=== PATIENT | female | born 1980 | race African-American/Black ===

== ENCOUNTER 2024-04-10 12:22 | Emergency (ER) | payer OTHER ==
[~2024-04-10] VITALS: Ht 170.2 cm; Wt 105.0 kg
[2024-04-10 12:24] VITALS: TEMP 99.2
[2024-04-10] MEDS: MAGNESIUM SULFATE 2 GM in DEXTROSE 5%-WATER 100 ML IV ONE (12:48)
[2024-04-10] MEDS: MethylPREDNISolone SOD SUCC 125 MG/2 ML VIAL IVP ONE (12:48)
[2024-04-10 12:53] LABS: BASOPHILS % (AUTO) 0.4 % (0.0-2.0); EOSINOPHILS % (AUTO) 0.6 % (1.0-6.0); HEMATOCRIT 41.6 % (36-46); HEMOGLOBIN 13.4 g/dL (12.0-16.0); LYMPHOCYTES # (AUTO) 0.9 K/uL (1.0-4.8); LYMPHOCYTES % (AUTO) 6.9 % (22.0-44.0); MEAN CORPUSCULAR HEMOGLOBIN 29.8 pg (26.0-34.0); MEAN CORPUSCULAR HGB CONC 32.1 G/dL (31.0-37.0); MEAN CORPUSCULAR VOLUME 93 fL (80-100); MONOCYTES # (AUTO) 0.7 K/uL (0.1-1.0); MONOCYTES % (AUTO) 5.6 % (2.0-9.0); NEUTROPHILS # (AUTO) 11.4 K/uL (1.8-7.7); PLATELET COUNT (AUTO) 282 K/uL (150-450); RED BLOOD CELL COUNT(AUTO) 4.48 MIL/uL (4.00-5.20); RED CELL DISTRIBUTION WIDTH 13.7 % (11.5-14.5); WHITE BLOOD COUNT (AUTO) 13.2 K/uL (4.5-11.0)
[2024-04-10 12:57] LABS: NEUTROPHILS % (AUTO) 86.5 % (40.0-70.0)
[2024-04-10 12:59] LABS: COVID AG,FIA SOURCE NASAL SWAB
[2024-04-10] MEDS: ALBUTEROL SULFATE 2.5 MG/0.5 ML NEB SOLUTION NEB ONE ×2 (12:59→14:00)
[2024-04-10] MEDS: IPRATROPIUM BROMIDE 0.5 MG/2.5 ML NEB SOLUTION NEB ONE ×2 (12:59→14:00)
[2024-04-10 13:02] VITALS: PULSE 91; RESP 24; O2SAT 95
[2024-04-10 13:08] LABS: CHLORIDE 99 mmol/L (98-107); POTASSIUM 3.6 mmol/L (3.5-5.1); SODIUM SERUM 136 mmol/L (136-145)
[2024-04-10 13:12] VITALS: PULSE 97; RESP 20; O2SAT 97
[2024-04-10 13:19] LABS: ANION GAP 14 mmol/L (8-16); CARBON DIOXIDE 23 mmol/L (22-29); CREATININE 1.03 mg/dL (0.60-1.30); GLOMERULAR FILTR. RATE CALC > 60 mL/min (>60); GLUCOSE,RANDOM 123 mg/dL (70-110); UREA NITROGEN, BLOOD 7 mg/dL (7-18)
[2024-04-10 13:22] LABS: B-TYPE NATRIURETIC PEPTIDE 7 pg/mL (0-100)
[2024-04-10 13:32] LABS: INFLUENZA TYPE A NEGATIVE FOR TYPE A (NEGATIVE); INFLUENZA TYPE B NEGATIVE FOR TYPE B (NEGATIVE); SARS-COV2 (COVID) ANTIGEN,FIA Negative (Negative)
[2024-04-10] MEDS ORDERED: PRED-554 PO (13:39)
[2024-04-10] MEDS ORDERED: ALBU18HF12 IH (13:40)
[2024-04-10 14:00] VITALS: PULSE 93; RESP 23; O2SAT 92
[2024-04-10 14:16] VITALS: PULSE 98; RESP 22; O2SAT 96
[2024-04-10 15:00] VITALS: BP 140/80; PULSE 97; RESP 16; O2SAT 96
== END 2024-04-10 15:43 | disposition home or self-care (01) ==
LOC: EMS 12:22
DX: J45.909 Unspecified asthma, uncomplicated (principal); R06.02 Shortness of breath; R09.81 Nasal congestion; Z20.822 Contact with and (suspected) exposure to COVID-19
CPT/HCPCS: 99285; 96365; 71045; 96375; 87426; 80048; 83880; 84703; 85025; 87804; 36415; 94640; 93005; J2919; J7060; J3475; J7613